=== PATIENT | male | born 1940 | race Caucasian/White ===

== ENCOUNTER 2017-04-26 07:10 | Day surgery (SDC) | payer OTHER ==
[2017-04-20 12:25] VITALS: BMI 30.2
[2017-04-26] MEDS ORDERED: TETRACAINE 0.5% OPHTH SOLN 2 ML BOTTLE ONE (08:48)
[2017-04-26] MEDS ORDERED: CARBACHOL 0.01% INTRA-OCULAR 1.5 ML VIAL ONE (08:48)
[2017-04-26] MEDS ORDERED: LIDOCAINE 1% P/F 10 MG/ML VIAL ONE (08:48)
[2017-04-26] MEDS ORDERED: BSS (NA/CA/MG/K) BALANCED SALT SOLUTION OPHTH SOLN 15 ML BOTTLE ONE (08:48)
[2017-04-26] MEDS ORDERED: CYCLOPENTOLATE 2% OPHTH SOLN 2 ML BOTTLE OS ONE ×3 (08:50→09:00)
[2017-04-26] MEDS ORDERED: CIPROFLOXACIN 0.3% EYE DROPS 5 ML BOTTLE OS ONE ×3 (08:50→09:00)
[2017-04-26] MEDS ORDERED: PHENYLEPHRINE 2.5% OPHTH SOLN 15 ML BOTTLE OS ONE ×3 (08:50→09:00)
[2017-04-26] MEDS ORDERED: TROPICAMIDE 1% OPHTH SOLN 15 ML BOTTLE OS ONE ×3 (08:50→09:00)
[2017-04-26 10:16] VITALS: BP 151/82
[2017-04-26 10:48] VITALS: PULSE 64; TEMP 98.2
--- NOTE | 2017-04-26 11:37 | OP ---
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 ANESTHESIA: MAC PROCEDURE: The patient was brought to the operating room and placed under monitored anesthesia care by Anesthesia. A drop of Tetracaine was then placed over the left eye. The patient was then prepped and draped in the usual sterile manner. A speculum was then placed over the left eye. The eye was then well irrigated with copious amounts of BSS (balanced salt solution). The operating microscope was then moved into position. A paracentesis was performed using a 15-degree blade. At this point, 0.5 mL of 1% preservative-free lidocaine was injected into the anterior chamber. Amvisc plus was then injected into the anterior chamber. A clear corneal incision was then formed using a 2.2-mm keratome. A cyclodialysis spatula was then used to break the posterior synechia. Two Sphere Fluidics[employer] iris hooks were then used to stretch the iris. More Amvisc plus was then injected into the anterior chamber. A capsulorrhexis was then performed in a continuous circular fashion beginning with a cystotome and completed with an Utrata's forceps. Hydrodissection was then performed using BSS on a cannula. The phaco probe was then introduced through the corneal wound and the cataract was removed using the phaco chop technique. Approximately 3 seconds of absolute phaco time was used. The remaining cortex was then removed using irrigation and aspiration with an I/A probe. The capsule was then filled with regular Amvisc and the capsule was noted to be intact. A previously selected foldable posterior chamber intraocular lens was then injected into the capsule through the corneal wound using a lens injector. It was then dialed into position using a Sinskey hook. The Amvisc was then removed using irrigation and aspiration. Miostat was then injected through the paracentesis to constrict the pupil. The paracentesis and corneal wound were then hydrated and noted to be water tight. A drop of Maxitrol was then placed over the eye. The speculum was removed and clear shield was taped over the eye. The patient tolerated the procedure well and there were no surgical complications. The patient was asked to follow up in my office the next day. ELISEO AGUIRRE M.D. [id number]
== END 2017-04-26 10:53 | disposition home or self-care (01) ==
LOC: FASU 07:10
PROVIDERS: ATTEND Ophthalmology
PROC: 08ND3ZZ Release Left Iris, Percutaneous Approach (ICD-10-PCS; 2017-04-26)
PROC: 08RK3JZ Replacement of Left Lens with Synthetic Substitute, Percutaneous Approach (ICD-10-PCS; principal; 2017-04-26 09:29)
DX: H26.8 Other specified cataract (principal); H21.542 Posterior synechiae (iris), left eye

== ENCOUNTER 2017-05-31 07:09 | Day surgery (SDC) | payer OTHER ==
[2017-05-26 11:10] VITALS: BMI 29.1
[2017-05-31] MEDS ORDERED: ACETYLCHOLINE 1:100 INTRA-OCUL 20 MG/2 ML KIT ONE (07:24)
[2017-05-31] MEDS ORDERED: CARBACHOL 0.01% INTRA-OCULAR 1.5 ML VIAL ONE (07:24)
[2017-05-31] MEDS ORDERED: LIDOCAINE 1% P/F 10 MG/ML VIAL ONE (07:24)
[2017-05-31] MEDS ORDERED: BSS (NA/CA/MG/K) BALANCED SALT SOLUTION OPHTH SOLN 15 ML BOTTLE ONE (07:24)
[2017-05-31] MEDS: PHENYLEPHRINE 2.5% OPHTH SOLN 15 ML BOTTLE ONE ×3 (07:45→07:55)
[2017-05-31] MEDS: CIPROFLOXACIN 0.3% EYE DROPS 5 ML BOTTLE ONE ×3 (07:45→07:55)
[2017-05-31] MEDS: CYCLOPENTOLATE 2% OPHTH SOLN 2 ML BOTTLE ONE ×3 (07:45→07:55)
[2017-05-31] MEDS: TROPICAMIDE 1% OPHTH SOLN 15 ML BOTTLE ONE ×3 (07:45→07:55)
[2017-05-31] MEDS ORDERED: MIDAZOLAM HCL 2 MG/2 ML SINGLE DOSE VIAL ONE (08:11)
[2017-05-31 09:12] VITALS: TEMP 98.2
[2017-05-31 09:40] VITALS: BP 104/59; PULSE 58
[2017-05-31] MEDS ORDERED: ONDANSETRON 4 MG/2 ML VIAL IVPUSH PRN (15:48)
[2017-05-31] MEDS ORDERED: ACETAMINOPHEN 325 MG TABLET (FP) PO PRN (15:48)
[2017-05-31] MEDS ORDERED: LACTATED RINGERS SOLUTION 1,000 ML IV SCH (16:00)
--- NOTE | 2017-06-01 08:24 | OP ---
DATE OF OPERATION: 05/31/2017 OPERATIVE PROCEDURE: Lens Phacoemulsification with Posterior Chamber Intraocular Lens Placement, Right Eye PREOPERATIVE DIAGNOSIS: Visually Significant Cataract of Right Eye POSTOPERATIVE DIAGNOSIS: Visually Significant Cataract of Right Eye SURGEON: Eliseo Aguirre M.D. ANESTHESIA: MAC PROCEDURE: The patient was brought to the operating room and placed under monitored anesthesia care by Anesthesia. A drop of Tetracaine was then placed over the right eye. The patient was then prepped and draped in the usual sterile manner. A speculum was then placed over the right eye. The eye was then well irrigated with copious amounts of BSS (balanced salt solution). The operating microscope was then moved into position. A paracentesis was performed using a 15 degree blade. At this point 0.5 mL of 1% preservative free-lidocaine was injected into the anterior chamber. Amvisc plus was then injected into the anterior chamber. A clear corneal incision was then formed using a 2.2 mm keratome. A capsulorrhexis was then performed in a continuous circular fashion beginning with a cystotome completed with an Utratas forceps. Hydrodissection was then performed using BSS on a cannula. The phaco probe was then introduced through the corneal wound and the cataract was removed using the phaco chop technique. Approximately 3 seconds of absolute phaco time was used. The remaining cortex was then removed using irrigation and aspiration with an I/A probe. The capsule was then filled with regular Amvisc and the capsule was noted to be intact. A previously selected foldable posterior chamber intraocular lens was then injected into the capsule through the corneal wound using a lens injector. It was then dialed into position using a Sinskey hook. The Amvisc was then removed using irrigation and aspiration. Miostat was then injected through the paracentesis to constrict the pupil. The paracentesis and corneal wound were then hydrated and noted to be water tight. A drop of Maxitrol was then placed over the eye. The speculum was removed and clear shield was taped over the eye. The patient tolerated the procedure well and there were no surgical complications. The patient was asked to follow up in my office the next day. ELISEO AGUIRRE M.D. [id number]
== END 2017-05-31 09:40 | disposition home or self-care (01) ==
LOC: FASU 07:09
PROVIDERS: ATTEND Ophthalmology
PROC: 08RJ3JZ Replacement of Right Lens with Synthetic Substitute, Percutaneous Approach (ICD-10-PCS; principal; 2017-05-31 08:35)
DX: H26.8 Other specified cataract (principal)

== ENCOUNTER 2018-05-15 07:05 | Day surgery (SDC) | payer OTHER ==
[2018-05-15 07:43] VITALS: BMI 32.1
[2018-05-15 10:23] VITALS: BP 148/68; PULSE 72; TEMP 98
--- NOTE | 2018-05-16 18:14 | PATH ---
Surgical Pathology Report Patient Name: BRIDGET POE [facility]. Rec. #: [id number] /Age/Gender: 1940 (Age: 78) / M Account: [id number] Location: [facility]-ENDOSCOPY Taken: 05/15/2018 Received: 05/15/2018 Reported: 05/16/2018 Physicians: Mau Churchill M.D. Specimen(s) Received A: BX LEFT COLON POLYPS B: BX RIGHT COLON POLYP C: BX TRANSVERSE COLON POLYPS Clinical History Screening Postoperative diagnosis: Colon polyps, diverticulosis Final Diagnosis A. POLYPS FROM LEFT COLON, POLYPECTOMY: TUBULAR ADENOMA, MULTIPLE FRAGMENTS. B. RIGHT COLON POLYP, POLYPECTOMY: TUBULAR ADENOMA. C. TRANSVERSE COLON POLYPS, POLYPECTOMY: TUBULAR ADENOMA, MULTIPLE FRAGMENTS. Electronically Signed Robi Block M.D. Gross Description A. Received in formalin, labeled "left colon polyps" are 6 ku, irregular portions of soft tissue ranging from 0.3-0.5 cm. in greatest dimension. The specimens are submitted in toto in one cassette. B. Received in formalin, labeled "right colon polyp" is a ku, irregular portion of soft tissue measuring 0.3 cm. in greatest dimension. The specimen is submitted in toto in one cassette. C. Received in formalin, labeled "transverse colon polyps" are 7 ku, irregular to polypoid portions of soft tissue ranging from 0.1-1.3 cm. in greatest dimension. The specimens are submitted in toto in one cassette. 05/15/2018 saudi05/15/2018
== END 2018-05-15 10:24 | disposition home or self-care (01) ==
LOC: JASU-ENDO 07:05
PROVIDERS: ATTEND Internal Medicine Gastroenterology
PROC: 0DBE8ZX Excision of Large Intestine, Via Natural or Artificial Opening Endoscopic, Diagnostic (ICD-10-PCS; principal; 2018-05-15 08:00)
DX: Z12.11 Encounter for screening for malignant neoplasm of colon (principal); Z86.010 Personal history of colon polyps; K57.30 Diverticulosis of large intestine without perforation or abscess without bleeding; K64.8 Other hemorrhoids
CPT/HCPCS: 88305-TC

== ENCOUNTER 2020-12-03 05:18 | Day surgery (SDC) | payer OTHER ==
[2020-12-02 13:44] VITALS: BMI 31.2
[2020-12-03] MEDS ORDERED: HEPARIN NA (PORCINE) 5,000 UNITS/ML 1ML VIAL ONE ×2 (07:10→08:15)
[2020-12-03] MEDS ORDERED: LIDOCAINE HCL 1%, 10 MG/ML (20ML VIAL) ONE (07:10)
[2020-12-03] MEDS ORDERED: PROPOFOL 20 ML ONE ×3 (07:25→08:16)
[2020-12-03] MEDS ORDERED: MIDAZOLAM HCL 2 MG/2 ML SINGLE DOSE VIAL ONE (07:26)
[2020-12-03] MEDS ORDERED: ONDANSETRON 4 MG/2 ML VIAL IVPUSH PRN (07:52)
[2020-12-03] MEDS ORDERED: oxyCODONE HCL 5 MG TABLET PO PRN (07:52)
[2020-12-03] MEDS ORDERED: ceFAZolin SODIUM 1 GM VIAL ONE ×2 (07:58)
[2020-12-03] MEDS ORDERED: LACTATED RINGERS SOLUTION 1,000 ML IV SCH (08:00)
[2020-12-03] MEDS ORDERED: LIDOCAINE HCL 1%, 10 MG/ML (50 mL VIAL) INF ONE (08:04)
[2020-12-03 14:15] VITALS: TEMP 97.6
[2020-12-03 14:48] VITALS: BP 134/69; PULSE 62
== END 2020-12-03 12:00 | disposition home or self-care (01) ==
LOC: JASU-SURG 05:18
PROVIDERS: ATTEND Surgery Vascular Surgery
PROC: 047L3Z1 Dilation of Left Femoral Artery using Drug-Coated Balloon, Percutaneous Approach (ICD-10-PCS; 2020-12-03)
PROC: 047Q3Z1 Dilation of Left Anterior Tibial Artery using Drug-Coated Balloon, Percutaneous Approach (ICD-10-PCS; principal; 2020-12-03 07:58)
DX: I70.245 Atherosclerosis of native arteries of left leg with ulceration of other part of foot (principal); E11.51 Type 2 diabetes mellitus with diabetic peripheral angiopathy without gangrene; L97.529 Non-pressure chronic ulcer of other part of left foot with unspecified severity
CPT/HCPCS: 37225; 37229; C1885; 76000-TC-FY; 82962; 94760; J1644

== ENCOUNTER 2023-07-11 11:15 | Inpatient (IN) | payer OTHER ==
[2023-07-11 11:26] VITALS: BMI 30.1
[2023-07-11 12:54] LABS: BASO % 0.3 % (0-2.0); EOS % 1.2 % (0-4.5); LYMPH % 14.1 % (8-40); MCH 22.2 pg (25.7-33.7); MEAN CELL VOLUME 71.7 fl (80-96); NEUT % 76.4 % (42.8-82.8); PLATELET COUNT 101 10^3/uL (134-434); RBC 4.04 M/mm3 (4.00-5.60); RDW 18.1 % (11.9-15.9); WHITE BLOOD COUNT 4.7 K/mm3 (4.0-10.0)
[2023-07-11 13:01] LABS: INR 1.8 (0.83-1.09); PROTHROMBIN TIME (PATIENT) 20.8 SEC (9.7-13.0)
[2023-07-11 13:04] LABS: ACTIVATED PTT 43.1 SECONDS (25.2-36.5)
[2023-07-11 13:18] LABS: POTASSIUM 4.5 mmol/L (3.5-5.1)
[2023-07-11 13:20] LABS: CALCIUM 8.5 mg/dL (8.5-10.1)
[2023-07-11 13:21] LABS: ALBUMIN 3.4 g/dl (3.4-5.0); BLOOD UREA NITROGEN 27.1 mg/dL (7-18); MAGNESIUM 2.2 mg/dL (1.8-2.4)
[2023-07-11 13:24] LABS: PHOSPHOROUS 3.2 mg/dL (2.5-4.9)
[2023-07-11 13:25] LABS: BILIRUBIN,TOTAL 0.6 mg/dL (0.2-1)
[2023-07-11 13:26] LABS: TOT PROT 6.4 g/dl (6.4-8.2)
[2023-07-11] MEDS: INSULIN ASPART SLIDING SCALE (NOVOLOG) 1 VIAL SQ SCH ×2 (16:43→21:59)
[2023-07-11] MEDS ORDERED: APIXABAN 5 MG TABLET ONE (21:35)
[2023-07-11] MEDS ORDERED: ATORVASTATIN CA 10 MG TABLET (FP) ONE (21:35)
[2023-07-11] MEDS ORDERED: TAMSULOSIN HCL 0.4 MG CAP ONE (21:36)
[2023-07-11] MEDS: TAMSULOSIN HCL 0.4 MG CAP PO SCH (21:39)
[2023-07-11] MEDS: APIXABAN 5 MG TABLET PO SCH (21:39)
[2023-07-11] MEDS: ATORVASTATIN CA 10 MG TABLET (FP) PO SCH (21:39)
[2023-07-12] MEDS: LEVOTHYROXINE NA 25 MCG TABLET (FP) PO SCH (07:04)
[2023-07-12] MEDS: INSULIN ASPART SLIDING SCALE (NOVOLOG) 1 VIAL SQ SCH ×4 (07:04→22:17)
[2023-07-12 07:14] LABS: POTASSIUM 4.5 mmol/L (3.5-5.1)
[2023-07-12 07:18] LABS: ALBUMIN 3.4 g/dl (3.4-5.0); CALCIUM 9.2 mg/dL (8.5-10.1)
[2023-07-12 07:19] LABS: BLOOD UREA NITROGEN 25.8 mg/dL (7-18); MAGNESIUM 1.9 mg/dL (1.8-2.4)
[2023-07-12 07:22] LABS: PHOSPHOROUS 3.5 mg/dL (2.5-4.9)
[2023-07-12 07:24] LABS: BILIRUBIN,TOTAL 0.4 mg/dL (0.2-1); TOT PROT 6.3 g/dl (6.4-8.2)
[2023-07-12] MEDS ORDERED: LEVOTHYROXINE NA 25 MCG TABLET (FP) ONE (07:31)
[2023-07-12] MEDS ORDERED: APIXABAN 5 MG TABLET ONE (08:39)
[2023-07-12] MEDS ORDERED: DULoxetine HCL 30 MG CAPSULE.DR PO ONE (08:39)
[2023-07-12] MEDS ORDERED: TAMSULOSIN HCL 0.4 MG CAP ONE (08:40)
[2023-07-12] MEDS: FINASTERIDE 5 MG TABLET (FP) PO SCH (08:53)
[2023-07-12] MEDS: TAMSULOSIN HCL 0.4 MG CAP PO SCH ×2 (08:53→21:50)
[2023-07-12] MEDS: APIXABAN 5 MG TABLET PO SCH (08:53)
[2023-07-12] MEDS: ALLOPURINOL 100 MG TABLET (FP) PO SCH (08:53)
[2023-07-12] MEDS: DULoxetine HCL 30 MG CAPSULE.DR PO SCH (08:53)
[2023-07-12 10:22] LABS: BASO % 0.2 % (0-2.0); EOS % 1.3 % (0-4.5); HEMATOCRIT 27.9 % (35.4-49); HEMOGLOBIN 8.7 GM/dL (11.7-16.9); LYMPH % 19.4 % (8-40); MCH 22.3 pg (25.7-33.7); MCHC 31.3 g/dl (32.0-35.9); MEAN CELL VOLUME 71.2 fl (80-96); MEAN PLT VOLUME 9.4 fl (7.5-11.1); MONO % 6.8 % (3.8-10.2); NEUT % 72.3 % (42.8-82.8); PLATELET COUNT 113 10^3/uL (134-434); RBC 3.92 M/mm3 (4.00-5.60)
[2023-07-12] MEDS ORDERED: INSULIN (NOVOLOG) ASPART 100 UNITS/ML 10ML VIAL ONE (11:40)
[2023-07-12 12:40] LABS: ANISOCYTOSIS 1+; MACROCYTOSIS 1+; OVALOCYTE 1+
[2023-07-12 12:44] LABS: INR 1.93 (0.83-1.09); PROTHROMBIN TIME (PATIENT) 22.2 SEC (9.7-13.0)
[2023-07-12] MEDS ORDERED: SODIUM CHLORIDE 500 ML IV STA (13:50)
[2023-07-12 14:28] LABS: POTASSIUM 4.3 mmol/L (3.5-5.1)
[2023-07-12 14:30] LABS: ALBUMIN 3.4 g/dl (3.4-5.0); BLOOD UREA NITROGEN 24.2 mg/dL (7-18); CALCIUM 8.8 mg/dL (8.5-10.1)
[2023-07-12 14:35] LABS: BILIRUBIN,TOTAL 0.6 mg/dL (0.2-1); TOT PROT 6.5 g/dl (6.4-8.2)
[2023-07-12] MEDS: DEXTROSE 5%-0.45% SALINE 1,000 ML IV SCH (19:37)
[2023-07-12] MEDS: SILVER SULFADIAZINE 1% TOP CREAM 50 GM JAR TP SCH (19:55)
[2023-07-12] MEDS: ATORVASTATIN CA 10 MG TABLET (FP) PO SCH (21:47)
[2023-07-13] MEDS ORDERED: INSULIN (NOVOLOG) ASPART 100 UNITS/ML 10ML VIAL ONE ×2 (06:07→21:20)
[2023-07-13] MEDS: INSULIN ASPART SLIDING SCALE (NOVOLOG) 1 VIAL SQ SCH ×4 (06:08→22:26)
[2023-07-13] MEDS: LEVOTHYROXINE NA 25 MCG TABLET (FP) PO SCH (06:08)
[2023-07-13] MEDS ORDERED: INSULIN (LEVEMIR) 100 UNITS/ML UNITS SQ ONE (07:28)
[2023-07-13 09:02] LABS: BASO % 0.1 % (0-2.0); EOS % 2.1 % (0-4.5); HEMATOCRIT 26.9 % (35.4-49); HEMOGLOBIN 8.2 GM/dL (11.7-16.9); MCH 21.8 pg (25.7-33.7); MCHC 30.4 g/dl (32.0-35.9); MEAN CELL VOLUME 71.8 fl (80-96); MEAN PLT VOLUME 8.7 fl (7.5-11.1); MONO % 9.3 % (3.8-10.2); NEUT % 65.5 % (42.8-82.8); PLATELET COUNT 96 10^3/uL (134-434); RBC 3.74 M/mm3 (4.00-5.60); RDW 18.9 % (11.9-15.9); WHITE BLOOD COUNT 3.9 K/mm3 (4.0-10.0)
[2023-07-13] MEDS: ALLOPURINOL 100 MG TABLET (FP) PO SCH (09:10)
[2023-07-13] MEDS: DULoxetine HCL 30 MG CAPSULE.DR PO SCH (09:10)
[2023-07-13] MEDS: FINASTERIDE 5 MG TABLET (FP) PO SCH (09:10)
[2023-07-13] MEDS: TAMSULOSIN HCL 0.4 MG CAP PO SCH ×2 (09:10→21:40)
[2023-07-13] MEDS: SILVER SULFADIAZINE 1% TOP CREAM 50 GM JAR TP SCH (09:11)
[2023-07-13 09:17] LABS: POTASSIUM 4.1 mmol/L (3.5-5.1)
[2023-07-13 09:22] LABS: CALCIUM 8.1 mg/dL (8.5-10.1); MAGNESIUM 1.9 mg/dL (1.8-2.4)
[2023-07-13 09:25] LABS: PHOSPHOROUS 3.4 mg/dL (2.5-4.9)
[2023-07-13 09:27] LABS: BILIRUBIN,TOTAL 0.5 mg/dL (0.2-1); TOT PROT 5.8 g/dl (6.4-8.2)
[2023-07-13 10:11] LABS: ANISOCYTOSIS 1+; MACROCYTOSIS 0
[2023-07-13 15:16] VITALS: RESP 18
[2023-07-13] MEDS: DEXTROSE 5%-0.45% SALINE 1,000 ML IV SCH (19:18)
[2023-07-13] MEDS: ATORVASTATIN CA 10 MG TABLET (FP) PO SCH (21:39)
[2023-07-14] MEDS ORDERED: INSULIN (NOVOLOG) ASPART 100 UNITS/ML 10ML VIAL ONE ×2 (06:51→22:33)
[2023-07-14] MEDS: LEVOTHYROXINE NA 25 MCG TABLET (FP) PO SCH (06:54)
[2023-07-14] MEDS: INSULIN ASPART SLIDING SCALE (NOVOLOG) 1 VIAL SQ SCH ×4 (06:55→22:41)
[2023-07-14 09:00] LABS: BASO % 0.1 % (0-2.0); HEMATOCRIT 27.7 % (35.4-49); HEMOGLOBIN 8.7 GM/dL (11.7-16.9); LYMPH % 19.3 % (8-40); MCH 22.4 pg (25.7-33.7); MCHC 31.5 g/dl (32.0-35.9); MEAN CELL VOLUME 71.1 fl (80-96); MEAN PLT VOLUME 8.7 fl (7.5-11.1); MONO % 7.1 % (3.8-10.2); NEUT % 71.5 % (42.8-82.8); PLATELET COUNT 104 10^3/uL (134-434); RDW 18.5 % (11.9-15.9); WHITE BLOOD COUNT 3.8 K/mm3 (4.0-10.0)
[2023-07-14 09:26] LABS: POTASSIUM 3.9 mmol/L (3.5-5.1)
[2023-07-14] MEDS ORDERED: ONDANSETRON 4 MG/2 ML VIAL IVPUSH PRN (09:39)
[2023-07-14 10:06] LABS: BLOOD UREA NITROGEN 15.2 mg/dL (7-18); CALCIUM 8.1 mg/dL (8.5-10.1)
[2023-07-14 10:09] LABS: CREATININE 0.9 mg/dL (0.55-1.3)
[2023-07-14 10:10] LABS: BILIRUBIN,TOTAL 0.6 mg/dL (0.2-1); TOT PROT 5.9 g/dl (6.4-8.2)
[2023-07-14] MEDS: TAMSULOSIN HCL 0.4 MG CAP PO SCH ×2 (10:30→22:41)
[2023-07-14] MEDS: SILVER SULFADIAZINE 1% TOP CREAM 50 GM JAR TP SCH (10:31)
[2023-07-14] MEDS: DULoxetine HCL 30 MG CAPSULE.DR PO SCH (10:31)
[2023-07-14] MEDS: MULTIVITAMINS (DAILY MVI) TABLET (FP) PO SCH (10:31)
[2023-07-14] MEDS: ASCORBIC ACID 250 MG TABLET (FP) PO SCH (10:31)
[2023-07-14] MEDS: FINASTERIDE 5 MG TABLET (FP) PO SCH (10:31)
[2023-07-14] MEDS: ALLOPURINOL 100 MG TABLET (FP) PO SCH (10:31)
[2023-07-14] MEDS ORDERED: IRON SUCROSE INJECTION 200 MG in SODIUM CHLORIDE 90 ML IVPB ONE (11:00)
[2023-07-14] MEDS: ATORVASTATIN CA 10 MG TABLET (FP) PO SCH (22:41)
[2023-07-15] MEDS ORDERED: INSULIN (NOVOLOG) ASPART 100 UNITS/ML 10ML VIAL ONE ×2 (06:10→11:04)
[2023-07-15] MEDS: LEVOTHYROXINE NA 25 MCG TABLET (FP) PO SCH (06:25)
[2023-07-15] MEDS: INSULIN ASPART SLIDING SCALE (NOVOLOG) 1 VIAL SQ SCH ×3 (06:25→18:14)
[2023-07-15 08:36] LABS: BASO % 0.4 % (0-2.0); EOS % 2.6 % (0-4.5); HEMATOCRIT 28.6 % (35.4-49); HEMOGLOBIN 9.2 GM/dL (11.7-16.9); LYMPH % 20.6 % (8-40); MCH 22.7 pg (25.7-33.7); MCHC 32.1 g/dl (32.0-35.9); MEAN CELL VOLUME 70.8 fl (80-96); MEAN PLT VOLUME 8.1 fl (7.5-11.1); MONO % 6.7 % (3.8-10.2); NEUT % 69.7 % (42.8-82.8); PLATELET COUNT 110 10^3/uL (134-434); RBC 4.04 M/mm3 (4.00-5.60); RDW 18.3 % (11.9-15.9)
[2023-07-15 08:53] LABS: POTASSIUM 3.8 mmol/L (3.5-5.1)
[2023-07-15 08:56] LABS: CALCIUM 8.3 mg/dL (8.5-10.1)
[2023-07-15 08:57] LABS: BLOOD UREA NITROGEN 14.5 mg/dL (7-18)
[2023-07-15 09:00] LABS: CREATININE 0.9 mg/dL (0.55-1.3)
[2023-07-15] MEDS: FINASTERIDE 5 MG TABLET (FP) PO SCH (09:44)
[2023-07-15] MEDS: APIXABAN 5 MG TABLET PO SCH (09:44)
[2023-07-15] MEDS: ALLOPURINOL 100 MG TABLET (FP) PO SCH (09:44)
[2023-07-15] MEDS: TAMSULOSIN HCL 0.4 MG CAP PO SCH (09:44)
[2023-07-15] MEDS: MULTIVITAMINS (DAILY MVI) TABLET (FP) PO SCH (09:44)
[2023-07-15] MEDS: ASCORBIC ACID 250 MG TABLET (FP) PO SCH (09:44)
[2023-07-15] MEDS: SILVER SULFADIAZINE 1% TOP CREAM 50 GM JAR TP SCH (09:45)
[2023-07-15] MEDS: DULoxetine HCL 30 MG CAPSULE.DR PO SCH (09:45)
[2023-07-15 14:49] VITALS: BP 120/63; PULSE 63; TEMP 98.4
== END 2023-07-15 18:50 | disposition home health service (06) | DRG 605 ==
LOC: JER 11:15 → JERBED 16:22 → J7W 07-12 16:40 → OBSVTOIN 07-14 10:12
PROVIDERS: ADMIT Internal Medicine; ATTEND Nurse Practitioner
DX: S70.11XA Contusion of right thigh, initial encounter (principal); E11.621 Type 2 diabetes mellitus with foot ulcer; L97.528 Non-pressure chronic ulcer of other part of left foot with other specified severity; L97.518 Non-pressure chronic ulcer of other part of right foot with other specified severity; R22.41 Localized swelling, mass and lump, right lower limb; E03.9 Hypothyroidism, unspecified; I48.20 Chronic atrial fibrillation, unspecified; D69.6 Thrombocytopenia, unspecified; D50.9 Iron deficiency anemia, unspecified; E78.5 Hyperlipidemia, unspecified; L89.92 Pressure ulcer of unspecified site, stage 2; N40.0 Benign prostatic hyperplasia without lower urinary tract symptoms; W18.39XA Other fall on same level, initial encounter; Y93.89 Activity, other specified; Y92.89 Other specified places as the place of occurrence of the external cause; Y99.8 Other external cause status; M10.9 Gout, unspecified
CPT/HCPCS: 36415; 73201-TC-RT; 73701-TC-RT; 76882-TC-RT-FY; 80048; 80053; 82272; 82728; 82962; 83036; 83540; 83550; 83615; 83735; 84100; 84466; 85025; 85610; 85730; 86140; 93005; 93010; 93970-TC; 97116-GP; 97161-GP; 99285-25; G0378; G0463-25; J1756; Q9967

== ENCOUNTER 2023-07-27 04:16 | Day surgery (SDC) | payer OTHER ==
[2023-07-25 16:45] VITALS: BMI 27.2
[2023-07-27 07:42] LABS: INR 1.32 (0.83-1.09); PROTHROMBIN TIME (PATIENT) 15.3 SEC (9.7-13.0)
[2023-07-27 07:45] LABS: ACTIVATED PTT 39.5 SECONDS (25.2-36.5)
[2023-07-27] MEDS ORDERED: LIDOCAINE HCL 1%, 10 MG/ML (20ML VIAL) ONE (08:43)
[2023-07-27] MEDS: ceFAZolin SODIUM 1 GM VIAL IVPB ONE (09:25)
[2023-07-27] MEDS: LIDOCAINE HCL 1%, 10 MG/ML (20ML VIAL) ID ONE ×3 (09:29)
[2023-07-27] MEDS ORDERED: POVIDONE-IODINE OINTMENT 10% - 28.4 GM TUBE ONE (09:43)
[2023-07-27 12:04] VITALS: RESP 18
[2023-07-27 12:38] VITALS: BP 134/60; PULSE 65; TEMP 97.8
== END 2023-07-27 13:00 | disposition home or self-care (01) ==
LOC: JASU-SURG 04:16
PROVIDERS: ATTEND Surgery Vascular Surgery
PROC: 0JCL0ZZ Extirpation of Matter from Right Upper Leg Subcutaneous Tissue and Fascia, Open Approach (ICD-10-PCS; principal; 2023-07-27 08:30)
DX: M79.81 Nontraumatic hematoma of soft tissue (principal)
CPT/HCPCS: 36415; 82962; 85610; 85730; 86850; 86900; 86901; 88304-TC; 94760

== ENCOUNTER 2023-11-30 11:12 | Inpatient (IN) | payer OTHER ==
[2023-11-30 12:32] LABS: BASO % 0.4 % (0-2.0); EOS % 1.1 % (0-4.5); HEMOGLOBIN 9.8 GM/dL (11.7-16.9); LYMPH % 12.4 % (8-40); MCH 23.3 pg (25.7-33.7); MCHC 31.6 g/dl (32.0-35.9); MEAN CELL VOLUME 73.6 fl (80-96); MEAN PLT VOLUME 8.4 fl (7.5-11.1); MONO % 6.2 % (3.8-10.2); NEUT % 79.9 % (42.8-82.8); PLATELET COUNT 109 10^3/uL (134-434); RBC 4.22 M/mm3 (4.00-5.60); RDW 20.3 % (11.9-15.9); WHITE BLOOD COUNT 6.1 K/mm3 (4.0-10.0)
[2023-11-30 12:50] LABS: POTASSIUM 4.8 mmol/L (3.5-5.1)
[2023-11-30 12:53] LABS: ALBUMIN 3.5 g/dl (3.4-5.0); CALCIUM 8.7 mg/dL (8.5-10.1)
[2023-11-30 12:54] LABS: BLOOD UREA NITROGEN 28.8 mg/dL (7-18)
[2023-11-30 12:57] LABS: CREATININE 1.2 mg/dL (0.55-1.3)
[2023-11-30 12:58] LABS: BILIRUBIN,TOTAL 0.6 mg/dL (0.2-1); TOT PROT 6.3 g/dl (6.4-8.2)
[2023-11-30 13:01] LABS: N-TERMINAL BNP 1073.1 pg/ml (5-450)
[2023-11-30 13:10] LABS: ACTIVATED PTT 40.8 SECONDS (25.2-36.5); INR 1.41 (0.83-1.09); PROTHROMBIN TIME (PATIENT) 15.8 SEC (9.7-13.0)
[2023-11-30] MEDS ORDERED: MICONAZOLE MC SCH (22:00)
[2023-11-30] MEDS: FINASTERIDE 5 MG TABLET (FP) PO SCH (23:17)
[2023-11-30] MEDS: ATORVASTATIN CA 10 MG TABLET (FP) PO SCH (23:17)
[2023-11-30] MEDS: ENOXAPARIN NA (PORCINE) 100 MG/1 ML DISP.SYRIN SQ SCH (23:18)
[2023-12-01 06:00] VITALS: BMI 32.4
[2023-12-01] MEDS: INSULIN ASPART SLIDING SCALE (NOVOLOG) 1 VIAL SQ SCH (07:52)
[2023-12-01] MEDS: LEVOTHYROXINE NA 25 MCG TABLET (FP) PO SCH (07:54)
[2023-12-01] MEDS: ALLOPURINOL 100 MG TABLET (FP) PO SCH (07:54)
[2023-12-01 09:51] VITALS: PULSE 60; RESP 20
[2023-12-01] MEDS: TAMSULOSIN HCL 0.4 MG CAP PO SCH (09:53)
[2023-12-01] MEDS: DULoxetine HCL 30 MG CAPSULE.DR PO SCH (09:58)
[2023-12-01 13:06] VITALS: BP 134/56; TEMP 98.4
[2023-12-01] MEDS ORDERED: INSULIN ASPART SLIDING SCALE (NOVOLOG) 1 VIAL SQ ONE (13:28)
[2023-12-01] MEDS: ONDANSETRON 4 MG/2 ML VIAL IVPB ONE (15:06)
== END 2023-12-01 17:02 | disposition home health service (06) | DRG 204 ==
LOC: JER 11:12 → JERBED 14:39 → J8W 18:04
PROVIDERS: ADMIT Internal Medicine; ATTEND Nurse Practitioner Acute Care
DX: R91.8 Other nonspecific abnormal finding of lung field (principal); E11.9 Type 2 diabetes mellitus without complications; I48.91 Unspecified atrial fibrillation; M10.9 Gout, unspecified; E03.9 Hypothyroidism, unspecified; N40.0 Benign prostatic hyperplasia without lower urinary tract symptoms; E78.5 Hyperlipidemia, unspecified
CPT/HCPCS: 0241U-QW; 36415; 71045-TC-FY; 80053; 82962; 83880; 84484; 85025; 85610; 85730; 86850; 86900; 86901; 87040; 93005; 93010; 99285-25